=== PATIENT | female | born 1950 | race Caucasian/White ===

== ENCOUNTER 2018-06-16 20:12 | Inpatient (IN) | payer MEDICARE, OTHER ==
[~2018-06-16] VITALS: Ht 167.6 cm; Wt 70.8 kg
[2018-06-16 21:30] LABS: BASOPHILS % 0.7 % (0.0-2.0); EOSINOPHILS % 10.5 % (0.0-5.0); HEMOGLOBIN. 8.7 g/dL (12.0-16.0); LYMPHOCYTES % 9.9 % (20.0-50.0); MEAN CORPUSCULAR HEMOGLOBIN 29.5 pg (28.0-32.0); MEAN PLATELET VOLUME 7.7 fl (7.4-10.4); NEUTROPHILS % 71.9 % (40.0-76.0); PLATELET 209 x1000/uL (130-400); RED BLOOD CELL COUNT 2.95 mill/uL (4.2-5.4); RED CELL DISTRIBUTION WIDTH 16.4 % (11.6-14.6)
[2018-06-16 21:35] LABS: CHLORIDE 100 mEq/L (98-107)
[2018-06-16 21:37] LABS: INR 1.6; PARTIAL THROMBOPLASTIN TIME 40.8 sec (23.4-31.0); PROTHROMBIN TIME 15.5 sec (9.1-11.1)
[2018-06-16 21:39] LABS: ETHANOL BLOOD < 10 mg/dL
[2018-06-16] MEDS ORDERED: HYDR-459 PO (21:49)
[2018-06-16] MEDS ORDERED: ATOR-2 PO (21:50)
[2018-06-16] MEDS ORDERED: ATOR20TA65 PO (21:51)
[2018-06-16] MEDS ORDERED: NIFE60TA64 PO (21:51)
[2018-06-16] MEDS ORDERED: HYDR50SY PO (21:52)
[2018-06-16] MEDS ORDERED: METO25TA6 PO (21:53)
[2018-06-16] MEDS ORDERED: PANT40TA4 PO (21:54)
[2018-06-16] MEDS ORDERED: WARF-53 PO (21:55)
[2018-06-16] MEDS ORDERED: CLON0.1T PO (21:56)
[2018-06-16] MEDS ORDERED: CARV6.2548 PO (21:57)
[2018-06-16] MEDS ORDERED: LOSA50TA20 PO (21:58)
[2018-06-16] MEDS ORDERED: CLOP75TA33 PO (21:59)
[2018-06-17] MEDS ORDERED: NITROGLYCERIN OINT 1GM/INCH UDPKT TD ONE (00:15)
[2018-06-17] MEDS ORDERED: MAGNESIUM/ALUMINUM HYDROXIDE/SIMETHICONE 30ML UDC PO PRN (03:45)
[2018-06-17] MEDS ORDERED: GUAIFENESIN 200MG/10ML SUGAR FREE UDC PO PRN (03:45)
[2018-06-17] MEDS ORDERED: ONDANSETRON HCL 4MG/2ML INJ IV PRN (03:45)
[2018-06-17] MEDS ORDERED: ACETAMINOPHEN 325MG TABLET PO PRN (03:45)
[2018-06-17] MEDS ORDERED: IPRATROPIUM/ALBUTEROL 0.5-3(2.5)MG/3ML NEB INH PRN (03:45)
[2018-06-17] MEDS ORDERED: DIPHENHYDRAMINE 50MG/ML VIAL IV PRN (03:45)
[2018-06-17] MEDS: CLONIDINE 0.1MG TABLET PO PRN (05:58)
[2018-06-17] MEDS ORDERED: INSU100I28 SQ (08:37)
[2018-06-17] MEDS ORDERED: HYDRALAZINE 20MG/ML VIAL IV PRN (09:20)
[2018-06-17] MEDS: FOLIC ACID/VITAMIN B COMP W-C TABLET PO SCH (10:42)
[2018-06-17 10:58] VITALS: BP 190/82
[2018-06-17] MEDS ORDERED: DEXTROSE 50% WATER 50ML SYRINGE IV PRN (11:15)
[2018-06-17 12:00] VITALS: BP 160/36
[2018-06-17] MEDS: BLOOD SUGAR DIAGNOSTIC STRIP TEST SCH ×3 (12:10→21:49)
[2018-06-17] MEDS: SEVELAMER CARBONATE 800 MG TABLET PO SCH ×2 (13:22→18:12)
[2018-06-17] MEDS: INSULIN LISPRO 100 UNITS/ML SUBCUT SCH ×3 (13:22→22:18)
[2018-06-17] MEDS: SODIUM CHLORIDE 0.9% INJ 3ML FLUSH IVF SCH ×2 (13:26→21:50)
[2018-06-17 16:00] VITALS: BP 159/77
[2018-06-17 20:00] VITALS: BP 172/44
[2018-06-17] MEDS: HYDROXYZINE 25MG TABLET PO SCH ×2 (20:36→22:00)
[2018-06-17] MEDS ORDERED: EPOETIN ALFA 10000UNITS/ML VIAL SUBCUT SCH (21:00)
[2018-06-18] VITALS: BP 155/57
[2018-06-18 04:00] VITALS: BP 146/61
[2018-06-18] MEDS: HYDROXYZINE 25MG TABLET PO SCH ×2 (06:13→14:34)
[2018-06-18] MEDS: SODIUM CHLORIDE 0.9% INJ 3ML FLUSH IVF SCH ×2 (06:13→14:34)
[2018-06-18] MEDS: BLOOD SUGAR DIAGNOSTIC STRIP TEST SCH ×3 (06:56→17:41)
[2018-06-18] MEDS: INSULIN LISPRO 100 UNITS/ML SUBCUT SCH ×3 (06:56→17:48)
[2018-06-18 08:00] VITALS: BP 160/60
[2018-06-18] MEDS: SEVELAMER CARBONATE 800 MG TABLET PO SCH ×3 (08:22→17:47)
[2018-06-18] MEDS: FOLIC ACID/VITAMIN B COMP W-C TABLET PO SCH (08:22)
[2018-06-18] MEDS: CLONIDINE 0.1MG TABLET PO PRN (08:22)
[2018-06-18] MEDS ORDERED: LOSARTAN POTASSIUM 50 MG TABLET PO SCH (11:00)
[2018-06-18] MEDS ORDERED: CARVEDILOL 6.25 MG TABLET PO SCH (11:00)
[2018-06-18] MEDS ORDERED: INSULIN GLARGINE UD 100 UNITS/ML SYR SUBCUT SCH (11:30)
[2018-06-18 11:40] LABS: HEMATOCRIT 25.2 % (36.0-48.0); HEMOGLOBIN 8.4 g/dL (12.0-16.0); MEAN CORPUSCULAR HEMOGLOBIN 30.2 pg (28.0-32.0); MEAN CORPUSCULAR VOLUME 90.4 fL (81.0-99.0); PLATELET 171 x1000/uL (130-400); RED BLOOD CELL COUNT 2.79 mill/uL (4.2-5.4); RED CELL DISTRIBUTION WIDTH 16.6 % (11.6-14.6)
[2018-06-18 11:47] LABS: INR 1.3; PROTHROMBIN TIME 12.7 sec (9.1-11.1)
[2018-06-18 12:00] VITALS: BP 154/58
[2018-06-18] MEDS ORDERED: NEOMY SULF/BACITRAC ZN/POLY OINT 28GM TOP SCH (14:00)
[2018-06-18] MEDS: HYDROCORTISONE 1% CREAM 30GM TOP SCH ×2 (14:34→17:48)
[2018-06-18 16:28] VITALS: BP 150/63
[2018-06-18] MEDS ORDERED: WARFARIN SODIUM 5MG TABLET PO SCH (18:00)
[2018-06-18] MEDS ORDERED: ATORVASTATIN CALCIUM 40MG TABLET PO SCH (21:00)
== END 2018-06-18 19:00 | disposition home or self-care (01) | DRG 189 ==
LOC: ER 21:11 → 8WST 06-17 01:58 → ENRESERV 06-17 07:08
PROVIDERS: ADMIT Internal Medicine; ATTEND Internal Medicine
PROC: 5A1D70Z Performance of Urinary Filtration, Intermittent, Less than 6 Hours Per Day (ICD-10-PCS; 2018-06-17)
PROC: 5A1D70Z Performance of Urinary Filtration, Intermittent, Less than 6 Hours Per Day (ICD-10-PCS; principal; 2018-06-18)
DX: J96.20 Acute and chronic respiratory failure, unspecified whether with hypoxia or hypercapnia (principal); N18.6 End stage renal disease; I13.2 Hypertensive heart and chronic kidney disease with heart failure and with stage 5 chronic kidney disease, or end stage renal disease; R07.9 Chest pain, unspecified; D63.8 Anemia in other chronic diseases classified elsewhere; E11.22 Type 2 diabetes mellitus with diabetic chronic kidney disease; E11.42 Type 2 diabetes mellitus with diabetic polyneuropathy; I25.10 Atherosclerotic heart disease of native coronary artery without angina pectoris; I25.2 Old myocardial infarction; I50.9 Heart failure, unspecified; R26.9 Unspecified abnormalities of gait and mobility; K21.9 Gastro-esophageal reflux disease without esophagitis; L85.3 Xerosis cutis; L87.0 Keratosis follicularis et parafollicularis in cutem penetrans; M20.42 Other hammer toe(s) (acquired), left foot; M20.41 Other hammer toe(s) (acquired), right foot; Z79.01 Long term (current) use of anticoagulants; Z82.49 Family history of ischemic heart disease and other diseases of the circulatory system; Z83.3 Family history of diabetes mellitus; Z86.718 Personal history of other venous thrombosis and embolism; Z90.49 Acquired absence of other specified parts of digestive tract; Z95.5 Presence of coronary angioplasty implant and graft; Z99.2 Dependence on renal dialysis; Z88.5 Allergy status to narcotic agent
CPT/HCPCS: 36415; 71045; 80320; 82962; 83880; 84484; 85027; 93005; 93970; 96372; 96374; 99285; J0360; J0885; J1815; J7620; G0480

== ENCOUNTER 2019-09-25 22:05 | Emergency (ER) | payer MEDICARE ==
[~2019-09-25] VITALS: Ht 175.3 cm; Wt 86.0 kg
[~2019-09-25 22:05] MED LIST: ASPI-1160 PO; ATOR-2 PO; HYDR-459 PO; HYDR453.4 TOP; INSLIS SUBCUT; LACT10SO6 PO; LISI10TA5 PO; METO-396 PO; METO-539 PO; METR-167 PO; SEVE800T8 PO; TICA90TA PO
[2019-09-25 23:19] LABS: HEMATOCRIT 26.6 % (36.0-48.0); HEMOGLOBIN 8.9 g/dL (12.0-16.0); MEAN CORPUSCULAR HEMOGLOBIN 31.4 pg (28.0-32.0); MEAN CORPUSCULAR VOLUME 94.4 fL (81.0-99.0); PLATELET 263 x1000/uL (130-400); RED BLOOD CELL COUNT 2.82 mill/uL (4.2-5.4); RED CELL DISTRIBUTION WIDTH 17.3 % (11.6-14.6)
[2019-09-25 23:31] LABS: CHLORIDE 102 mEq/L (98-107)
[2019-09-26 04:41] VITALS: BP 124/37
== END 2019-09-26 03:48 | disposition home or self-care (01) ==
LOC: ER 22:05
DX: R07.89 Other chest pain (principal); F41.9 Anxiety disorder, unspecified; I12.0 Hypertensive chronic kidney disease with stage 5 chronic kidney disease or end stage renal disease; E11.22 Type 2 diabetes mellitus with diabetic chronic kidney disease; N18.6 End stage renal disease; Z79.4 Long term (current) use of insulin; Z88.6 Allergy status to analgesic agent; Z99.2 Dependence on renal dialysis; Z79.82 Long term (current) use of aspirin; Z98.890 Other specified postprocedural states
CPT/HCPCS: 36415; 80053; 84484; 85027; 93005; 99285

== ENCOUNTER 2019-10-18 09:33 | Inpatient (IN) | payer MEDICARE ==
[~2019-10-18] VITALS: Ht 167.6 cm; Wt 73.5 kg
[2019-10-18 10:24] LABS: BASOPHILS % 1.1 % (0.0-2.0); EOSINOPHILS % 5.9 % (0.0-5.0); HEMATOCRIT. 33.1 % (36.0-48.0); HEMOGLOBIN. 10.7 g/dL (12.0-16.0); LYMPHOCYTES % 13.8 % (20.0-50.0); MEAN CORPUSCULAR HEMOGLOBIN 32.2 pg (28.0-32.0); MEAN CORPUSCULAR VOLUME 100.1 fL (81.0-99.0); MEAN PLATELET VOLUME 7.6 fl (7.4-10.4); MONOCYTES % 6.9 % (2.0-8.0); NEUTROPHILS % 72.3 % (40.0-76.0); PLATELET 210 x1000/uL (130-400); RED BLOOD CELL COUNT 3.31 mill/uL (4.2-5.4); RED CELL DISTRIBUTION WIDTH 19.3 % (11.6-14.6)
[2019-10-18 10:35] LABS: INR 1.1; PROTHROMBIN TIME 11.5 sec (9.6-11.0)
[2019-10-18 10:38] LABS: CHLORIDE 101 mEq/L (98-107)
[2019-10-18] MEDS ORDERED: BENZONATATE 100MG CAPSULE PO PRN (14:30)
[2019-10-18] MEDS ORDERED: ACETAMINOPHEN 325MG TABLET PO PRN (14:30)
[2019-10-18] MEDS ORDERED: ONDANSETRON 4MG/5ML UDC PO SCH (14:30)
[2019-10-18] MEDS ORDERED: ONDANSETRON HCL 4MG/2ML INJ IV PRN (14:30)
[2019-10-18] MEDS ORDERED: CEFTRIAXONE 1 G PREMIX 50 ML IV SCH (15:00)
[2019-10-18 15:30] VITALS: BP 134/35
[2019-10-18] MEDS: CEFTRIAXONE 1,000 MG in DEXTROSE 5% WATER 50 ML IV SCH (18:40)
[2019-10-18] MEDS: ENOXAPARIN 30MG/0.3ML SYR SUBCUT SCH (18:41)
[2019-10-18] MEDS: AMLODIPINE 10MG TABLET PO SCH (18:41)
[2019-10-18] MEDS: AZITHROMYCIN 500 MG TABLET PO SCH (18:43)
[2019-10-18] MEDS ORDERED: DEXTROSE 50% WATER 50ML SYRINGE IV PRN (19:30)
[2019-10-18 20:00] VITALS: BP 155/54
[2019-10-18] MEDS: BLOOD SUGAR DIAGNOSTIC STRIP TEST SCH (21:00)
[2019-10-18] MEDS: INSULIN LISPRO 100 UNITS/ML SUBCUT SCH (22:25)
[2019-10-19] VITALS: BP 132/55
[2019-10-19 04:00] VITALS: BP 137/44
[2019-10-19] MEDS: INSULIN LISPRO 100 UNITS/ML SUBCUT SCH ×4 (08:10→21:30)
[2019-10-19] MEDS: BLOOD SUGAR DIAGNOSTIC STRIP TEST SCH ×4 (08:35→21:30)
[2019-10-19] MEDS: AZITHROMYCIN 500 MG TABLET PO SCH (09:04)
[2019-10-19] MEDS: AMLODIPINE 10MG TABLET PO SCH (09:05)
[2019-10-19] MEDS: ENOXAPARIN 30MG/0.3ML SYR SUBCUT SCH (09:06)
[2019-10-19 09:39] VITALS: BP 124/50
[2019-10-19 12:33] VITALS: BP 117/34
[2019-10-19 15:30] LABS: BASOPHILS % 1.2 % (0.0-2.0); HEMATOCRIT. 30.6 % (36.0-48.0); HEMOGLOBIN. 9.9 g/dL (12.0-16.0); MEAN CORPUSCULAR HEMOGLOBIN 32.2 pg (28.0-32.0); MEAN CORPUSCULAR VOLUME 99.1 fL (81.0-99.0); MEAN PLATELET VOLUME 7.7 fl (7.4-10.4); NEUTROPHILS % 67.8 % (40.0-76.0); PLATELET 175 x1000/uL (130-400); RED BLOOD CELL COUNT 3.09 mill/uL (4.2-5.4); RED CELL DISTRIBUTION WIDTH 19.4 % (11.6-14.6)
[2019-10-19 15:40] LABS: PHOSPHORUS 4.2 mg/dL (2.5-4.9)
[2019-10-19 16:51] VITALS: BP 121/43
[2019-10-19] MEDS: CEFTRIAXONE 1,000 MG in DEXTROSE 5% WATER 50 ML IV SCH (17:24)
[2019-10-19] MEDS: GUAIFENESIN 600MG ER TABLET PO SCH (21:28)
[2019-10-20] VITALS (8 sets, daily range): BP systolic 98–142; BP diastolic 32–61
[2019-10-20] MEDS: BLOOD SUGAR DIAGNOSTIC STRIP TEST SCH ×4 (06:35→21:21)
[2019-10-20] MEDS: INSULIN LISPRO 100 UNITS/ML SUBCUT SCH ×4 (08:10→21:00)
[2019-10-20] MEDS: AMLODIPINE 10MG TABLET PO SCH (09:00)
[2019-10-20] MEDS: GUAIFENESIN 600MG ER TABLET PO SCH ×2 (09:40→21:21)
[2019-10-20] MEDS: ENOXAPARIN 30MG/0.3ML SYR SUBCUT SCH (09:41)
[2019-10-20 10:55] LABS: BASOPHILS % 1.3 % (0.0-2.0); EOSINOPHILS % 8.1 % (0.0-5.0); HEMATOCRIT. 31.2 % (36.0-48.0); HEMOGLOBIN. 10.1 g/dL (12.0-16.0); LYMPHOCYTES % 15.9 % (20.0-50.0); MEAN CORPUSCULAR HEMOGLOBIN 32.2 pg (28.0-32.0); MEAN CORPUSCULAR VOLUME 99.9 fL (81.0-99.0); MEAN PLATELET VOLUME 7.8 fl (7.4-10.4); MONOCYTES % 7.7 % (2.0-8.0); PLATELET 170 x1000/uL (130-400); RED BLOOD CELL COUNT 3.12 mill/uL (4.2-5.4); RED CELL DISTRIBUTION WIDTH 19.7 % (11.6-14.6)
[2019-10-20] MEDS: AZITHROMYCIN 500 MG TABLET PO SCH (11:50)
[2019-10-20] MEDS: TICAGRELOR 90 MG TABLET PO SCH ×2 (11:51→17:23)
[2019-10-20] MEDS: ASPIRIN 81MG TABLET PO SCH (11:51)
[2019-10-20] MEDS: CEFTRIAXONE 1,000 MG in DEXTROSE 5% WATER 50 ML IV SCH (17:22)
[2019-10-20] MEDS ORDERED: ATORVASTATIN CALCIUM 40MG TABLET PO SCH (21:00)
[2019-10-20] MEDS: LISINOPRIL 10MG TABLET PO SCH (21:20)
[2019-10-20] MEDS: METOPROLOL TARTRATE 50MG TABLET PO SCH (21:21)
[2019-10-21] VITALS (7 sets, daily range): BP systolic 99–125; BP diastolic 44–66
[2019-10-21] MEDS: BLOOD SUGAR DIAGNOSTIC STRIP TEST SCH ×3 (07:40→17:20)
[2019-10-21] MEDS: INSULIN LISPRO 100 UNITS/ML SUBCUT SCH ×3 (07:40→17:50)
[2019-10-21] MEDS: AMLODIPINE 10MG TABLET PO SCH (09:00)
[2019-10-21] MEDS: METOPROLOL TARTRATE 50MG TABLET PO SCH (09:00)
[2019-10-21] MEDS: LISINOPRIL 10MG TABLET PO SCH (09:00)
[2019-10-21 09:38] LABS: BASOPHILS % 2.2 % (0.0-2.0); EOSINOPHILS % 8.5 % (0.0-5.0); HEMATOCRIT. 30.3 % (36.0-48.0); LYMPHOCYTES % 15.1 % (20.0-50.0); MEAN CORPUSCULAR HEMOGLOBIN 32.8 pg (28.0-32.0); MEAN PLATELET VOLUME 7.6 fl (7.4-10.4); MONOCYTES % 9.1 % (2.0-8.0); NEUTROPHILS % 65.1 % (40.0-76.0); PLATELET 169 x1000/uL (130-400); RED BLOOD CELL COUNT 3.06 mill/uL (4.2-5.4)
[2019-10-21] MEDS: ENOXAPARIN 30MG/0.3ML SYR SUBCUT SCH (09:45)
[2019-10-21] MEDS: AZITHROMYCIN 500 MG TABLET PO SCH (09:45)
[2019-10-21] MEDS: GUAIFENESIN 600MG ER TABLET PO SCH (09:45)
[2019-10-21] MEDS: ASPIRIN 81MG TABLET PO SCH (09:45)
[2019-10-21] MEDS: TICAGRELOR 90 MG TABLET PO SCH ×2 (09:45→18:10)
[2019-10-21] MEDS ORDERED: GUAI600T44 MT (14:33)
[2019-10-21] MEDS ORDERED: BENZ-16 MT (14:33)
[2019-10-21] MEDS ORDERED: AZIT500T8 PO (14:33)
[2019-10-21] MEDS ORDERED: AMLO10TA80 PO (14:33)
[2019-10-21] MEDS: CEFTRIAXONE 1,000 MG in DEXTROSE 5% WATER 50 ML IV SCH (18:10)
== END 2019-10-21 20:16 | disposition home or self-care (01) | DRG 871 ==
LOC: ER 09:33 → EDBEDREQTM 10:53 → EDBEDREQ 10:53 → ENRESERV 14:03 → 7WST 16:50 → 6WST 10-20 18:45
PROVIDERS: ADMIT Internal Medicine; ATTEND Internal Medicine
PROC: 5A1D70Z Performance of Urinary Filtration, Intermittent, Less than 6 Hours Per Day (ICD-10-PCS; principal; 2019-10-20)
DX: A41.9 Sepsis, unspecified organism (principal); J18.9 Pneumonia, unspecified organism; E43 Unspecified severe protein-calorie malnutrition; N18.6 End stage renal disease; J96.00 Acute respiratory failure, unspecified whether with hypoxia or hypercapnia; I50.23 Acute on chronic systolic (congestive) heart failure; I13.2 Hypertensive heart and chronic kidney disease with heart failure and with stage 5 chronic kidney disease, or end stage renal disease; E87.1 Hypo-osmolality and hyponatremia; L97.429 Non-pressure chronic ulcer of left heel and midfoot with unspecified severity; M86.8X6 Other osteomyelitis, lower leg; E11.52 Type 2 diabetes mellitus with diabetic peripheral angiopathy with gangrene; E11.22 Type 2 diabetes mellitus with diabetic chronic kidney disease; E11.40 Type 2 diabetes mellitus with diabetic neuropathy, unspecified; I27.20 Pulmonary hypertension, unspecified; E11.621 Type 2 diabetes mellitus with foot ulcer; I25.10 Atherosclerotic heart disease of native coronary artery without angina pectoris; D64.9 Anemia, unspecified; L97.519 Non-pressure chronic ulcer of other part of right foot with unspecified severity; D72.810 Lymphocytopenia; E11.51 Type 2 diabetes mellitus with diabetic peripheral angiopathy without gangrene; L89.151 Pressure ulcer of sacral region, stage 1; E11.69 Type 2 diabetes mellitus with other specified complication; E78.5 Hyperlipidemia, unspecified; Z90.49 Acquired absence of other specified parts of digestive tract; Z98.61 Coronary angioplasty status; Z99.2 Dependence on renal dialysis; Z86.73 Personal history of transient ischemic attack (TIA), and cerebral infarction without residual deficits; Z68.26 Body mass index [BMI] 26.0-26.9, adult; Z88.6 Allergy status to analgesic agent; Z79.82 Long term (current) use of aspirin; Z79.4 Long term (current) use of insulin; Z79.899 Other long term (current) drug therapy; I25.2 Old myocardial infarction; Z03.818 Encounter for observation for suspected exposure to other biological agents ruled out; I36.1 Nonrheumatic tricuspid (valve) insufficiency
CPT/HCPCS: 36415; 71045; 80048; 80051; 80053; 82962; 83036; 83880; 84100; 84484; 85025; 87635; 93005; 97162; 99291; J0696; J1650; J1815; J2405; J7060; J8499

== ENCOUNTER 2020-01-06 14:39 | Emergency (ER) | payer MEDICARE ==
[~2020-01-06] VITALS: Ht 167.6 cm; Wt 59.0 kg
[~2020-01-06 14:39] MED LIST changes: +AMLO10TA80 PO; +BENZ-16 MT; +GUAI600T44 MT; -METO-396 PO; -METR-167 PO
[2020-01-06] MEDS ORDERED: NITROGLYCERIN OINT 1GM/INCH UDPKT TD ONE (15:30)
[2020-01-06 15:41] LABS: EOSINOPHILS % 3.1 % (0.0-5.0); HEMATOCRIT. 32.6 % (36.0-48.0); HEMOGLOBIN. 10.6 g/dL (12.0-16.0); LYMPHOCYTES % 18.2 % (20.0-50.0); MEAN CORPUSCULAR HEMOGLOBIN 31.3 pg (28.0-32.0); MEAN PLATELET VOLUME 8.6 fl (7.4-10.4); MONOCYTES % 8.8 % (2.0-8.0); NEUTROPHILS % 68.9 % (40.0-76.0); PLATELET 138 x1000/uL (130-400); RED CELL DISTRIBUTION WIDTH 17.7 % (11.6-14.6)
[2020-01-06 15:44] LABS: CHLORIDE 98 mEq/L (98-107)
[2020-01-06 15:47] LABS: INR 1.2; PROTHROMBIN TIME 12.2 sec (9.6-11.0)
[2020-01-06 21:00] VITALS: BP 133/53
== END 2020-01-06 20:57 | disposition short-term general hospital (02) ==
LOC: ER 14:39 → CANBEDREQ 23:13
DX: I13.0 Hypertensive heart and chronic kidney disease with heart failure and stage 1 through stage 4 chronic kidney disease, or unspecified chronic kidney disease (principal); E11.22 Type 2 diabetes mellitus with diabetic chronic kidney disease; Z20.828 Contact with and (suspected) exposure to other viral communicable diseases; I24.9 Acute ischemic heart disease, unspecified; D64.9 Anemia, unspecified; N18.9 Chronic kidney disease, unspecified; I25.10 Atherosclerotic heart disease of native coronary artery without angina pectoris; Z79.4 Long term (current) use of insulin; Z79.82 Long term (current) use of aspirin; Z98.890 Other specified postprocedural states
CPT/HCPCS: 36415; 71045; 80053; 83880; 84484; 85025; 85610; 87635; 93005; 99285; C9803